=== PATIENT | male | born 1955 | race Caucasian/White ===

== ENCOUNTER 2022-07-28 09:42 | Emergency (ER) | payer OTHER ==
[2022-07-28] MEDS ORDERED: ALPRAZolam 0.25 MG Tab PO ONE (09:54)
[2022-07-28 10:35] LABS: ANION GAP 13.5 mmol/L (5-15); CHLORIDE,CL 97 mmol/L (98-107); ESTIMATED GFR 97 mL/min (>=60); SODIUM,NA 134 mmol/L (136-145)
[2022-07-28] MEDS ORDERED: Albuterol/Ipratropium 3.0-0.5 MG/3 ML Neb Soln NEB ONE (11:00)
[2022-07-28] MEDS ORDERED: Take Home: LORazepam 0.5 MG Tab, 2 Tab Pack PO ONE (11:39)
== END 2022-07-28 11:47 | disposition home or self-care (01) ==
LOC: VM.ED 09:42
DX: F41.0 Panic disorder [episodic paroxysmal anxiety] (principal)
CPT/HCPCS: 71046; 80053; 83880; 84484; 85025; 93005; 93010; 99284; 99285; A9270-GY; J7620-GY

== ENCOUNTER 2024-05-06 00:46 | Emergency (ER) | payer MEDICARE, OTHER ==
[2024-05-06] MEDS: Albuterol/Ipratropium 3.0-0.5 MG/3 ML Neb Soln NEB ONE (01:07)
[2024-05-06] MEDS: methylPREDNISolone Sodium Succinate 125 MG/2 ML SDV IVPUSH ONE (01:07)
== END 2024-05-06 02:15 | disposition home or self-care (01) ==
LOC: VM.ED 00:46
DX: J44.1 Chronic obstructive pulmonary disease with (acute) exacerbation (principal); I10 Essential (primary) hypertension; Z79.890 Hormone replacement therapy; Z79.51 Long term (current) use of inhaled steroids; Z79.899 Other long term (current) drug therapy
CPT/HCPCS: 94640; 96374; 99284; J2919; J7620-GY

== ENCOUNTER 2024-05-07 11:18 | Emergency (ER) | payer OTHER ==
[2024-05-07] MEDS: Albuterol/Ipratropium 3.0-0.5 MG/3 ML Neb Soln NEB ONE ×3 (11:36→18:03)
[2024-05-07] MEDS: methylPREDNISolone Sodium Succinate 125 MG/2 ML SDV IVPUSH ONE (11:36)
[2024-05-07 11:38] LABS: BASOPHILS PERCENT AUTO 0.1 % (0.2-1.2); EOSINOPHILS PERCENT AUTO 0.3 % (0.0-4.0); HEMATOCRIT 38.9 % (40.0-52.0); HEMOGLOBIN 13.8 g/dL (14.0-18.0); IMMATURE GRAN ABSOLUTE AUTO 0.01 x10^3/uL (0.00-0.07); LYMPHOCYTES ABSOLUTE AUTO 0.7 x10^3/uL (1.0-4.8); LYMPHOCYTES PERCENT AUTO 6.4 % (25.0-50.0); MEAN CORPUSCULAR HGB CONC 35.5 g/dL (32.0-36.0); MEAN CORPUSCULAR VOLUME 90.3 fL (78.0-93.0); MONOCYTES ABSOLUTE AUTO 0.8 x10^3/uL (0.0-0.8); MONOCYTES PERCENT AUTO 7.9 % (2.0-11.0); NEUTROPHILS ABSOLUTE AUTO 9.1 x10^3/uL (1.8-7.7); NEUTROPHILS PERCENT AUTO 85.2 % (50.0-80.0); PLATELET COUNT,PLT 294 x10^3/uL (130-400); RED BLOOD CELL COUNT 4.31 x10^6/uL (4.5-6.0); WHITE BLOOD CELL COUNT,WBC 10.7 x10^3/uL (4.0-10.0)
[2024-05-07 11:46] LABS: HCO3 VENOUS,POC 25 mmol/L (22-29); O2 SATURATION VENOUS,POC 98 %; PCO2 VENOUS,POC 49 mmHg (41-51); PH VENOUS,POC 7.32 pH (7.32-7.43); PO2 VENOUS,POC 112 mmHg
[2024-05-07 11:53] LABS: A/G RATIO 1.03; ALBUMIN 3.7 g/dL (3.4-5.0); ANION GAP 12.3 mmol/L (5-15); BILIRUBIN TOTAL 0.5 mg/dL (0.2-1.0); CALCIUM 9.1 mg/dL (8.5-10.1); EST CRCL DRUG DOSING (CG) 66.02 mL/min; POTASSIUM,K 4.3 mmol/L (3.5-5.1); PROTEIN TOTAL,TP 7.3 g/dL (6.4-8.2)
[2024-05-07] MEDS: Piperacillin/Tazobactam 4.5 GM in Sodium Chloride 0.9% 100 ML IV ONE (12:21)
[2024-05-07] MEDS: Sodium Chloride 0.9% 1,000 ML IV ONE ×2 (12:21→12:56)
[2024-05-07] MEDS: Take Home: Amoxicillin/Clavulanate K 875-125 MG Tab, 2 Tab Pack PO ONE (14:36)
[2024-05-07] MEDS: Take Home: Albuterol 0.083% 2.5 MG/3 ML Neb Soln, 5 Neb Pack NEB ONE (18:07)
== END 2024-05-07 14:39 | disposition home or self-care (01) ==
LOC: VM.ED 11:18
DX: J44.1 Chronic obstructive pulmonary disease with (acute) exacerbation (principal); I10 Essential (primary) hypertension; E78.00 Pure hypercholesterolemia, unspecified; Z79.899 Other long term (current) drug therapy
CPT/HCPCS: 36415; 71045; 80053; 82803; 83605; 85025; 94640; 96361; 96365; 96375; 99284; 99285-25; A9270-GY; J2543; J2919; J3490; J7030; J7620-GY